=== PATIENT | female | born 1990 | race Caucasian/White ===

== ENCOUNTER 2017-02-26 12:55 | Emergency (ER) | payer BC ==
[~2017-02-26] VITALS: Ht 167.6 cm; Wt 120.2 kg
[2017-02-26] MEDS ORDERED: SYNTHROID112 MCG PO (13:49)
[2017-02-26] MEDS ORDERED: ULTRAM50 MG PO (15:16)
[2017-02-26] MEDS ORDERED: NAPROSYN500 MG PO (15:16)
== END 2017-02-26 15:53 | disposition home or self-care (01) ==
LOC: ED 12:55
DX: N94.6 Dysmenorrhea, unspecified (principal); E03.9 Hypothyroidism, unspecified; Z79.899 Other long term (current) drug therapy
CPT/HCPCS: 76830; 76856; 80053; 81001; 84703; 85025; 96361; 96374; 96375; 99284; J1885; J2270; J2405; J7030